=== PATIENT | male | born 1970 | race Caucasian/White ===

== ENCOUNTER 2020-10-08 09:37 | Observation (INO) ==
[2020-10-08] MEDS ORDERED: SODIUM CHLORIDE 0.9% 1,000 ML IV STA (10:08)
[2020-10-08 10:34] LABS: Basophils % 0.4 % (0.0-0.8); Hematocrit 46.8 VOL% (42.0-52.0); Hemoglobin 15.7 GM/DL (14.0-18.0); Immature Granulocytes Absolute 0.05 #; Lymphocytes # 0.7 10*3/uL (1.4-4.0); Lymphocytes % 15.1 % (21.2-54.2); Mean Corpuscular HGB Conc 33.5 GM/DL (32-36); Mean Corpuscular Volume 87.5 FL (87-102); Mean Platelet Volume 9.6 FL (9.6-12.0); Monocytes % 12.8 % (1.7-12.7); Neutrophils % 70.7 % (38.7-73.9); Platelet Count 220 T/CUMM (130-400); Red Blood Count 5.35 MC/CUMM (3.8-5.5); White Blood Count 4.9 T/CUMM (4-12)
[2020-10-08 10:51] LABS: Bilirubin,Urine Negative (Negative); Blood, Urine Negative (Negative); Glucose,Urine (UA) Negative (Negative); Hyaline Casts,Urine 1 /LPF (0-3); Ketones,Urine Negative (Negative); Mucus,Urine Occasional /LPF (Occasional); Nitrite,Urine Negative (Negative); Protein,Urine Negative; RBC,Urine 1 /HPF (0-4); Urine Appearance CLEAR (Clear); Urine Color Yellow (Yellow); Urine Specific Gravity 1.009 (1.001-1.035); Urine Urobilinogen < 2.0 EU/DL (0.2-1.0)
[2020-10-08 10:56] LABS: Barbiturates Screen,Urine Negative (Negative); Benzodiazepines Screen,Urine Negative (Negative); Cannabinoid Screen,Urine Negative (Negative); Opiate Screen,Urine Negative (Negative); Phencyclidine Screen,Urine Negative (Negative)
[2020-10-08 10:57] LABS: Albumin 3.3 G/DL (3.4-5.0); Bilirubin,Total 0.4 MG/DL (0.20-1.00); Calcium 8.5 MG/DL (8.5-10.1); Potassium 3.8 MMOL/L (3.5-5.1); Total Protein 7.2 G/DL (6.4-8.2)
[2020-10-08 11:15] LABS: Ferritin 3973.8 ng/ml (26-388)
[2020-10-08] MEDS ORDERED: ACETAMINOPHEN 325 MG TABLET PO PRN (14:47)
[2020-10-08] MEDS ORDERED: DEXTROSE 50% 25 GM/50 ML VIAL IV PRN (14:47)
[2020-10-08] MEDS ORDERED: hydrALAZINE 20 MG/1 ML VIAL IV PRN (14:47)
[2020-10-08] MEDS ORDERED: ZALEPLON 5 MG CAPSULE PO PRN (14:47)
[2020-10-08] MEDS ORDERED: GLUCAGON 1 MG VIAL IM PRN (14:47)
[2020-10-08] MEDS ORDERED: ONDANSETRON 4 MG/2 ML VIAL IV PRN (14:47)
[2020-10-08] MEDS ORDERED: ENOXAPARIN 40 MG/0.4 ML SYRINGE SUBCUT SCH (15:00)
[2020-10-08] MEDS ORDERED: SODIUM CHLORIDE 0.9% 1,000 ML IV SCH (15:00)
[2020-10-08] MEDS ORDERED: AZITHROMYCIN 250 MG TABLET PO ONE (17:19)
[2020-10-08] MEDS: ALBUTEROL/IPRATROPIUM 3 ML NEB RESP TX SCH (19:35)
[2020-10-08] MEDS: FAMOTIDINE 20 MG TABLET PO SCH (21:41)
[2020-10-08] MEDS: CEFDINIR 300 MG CAPSULE PO SCH (21:41)
[2020-10-08] MEDS: ASCORBIC ACID 500 MG TABLET PO SCH (21:42)
[2020-10-08 23:46] VITALS: BP 124/76
[2020-10-09 05:52] LABS: Basophils % 0.2 % (0.0-0.8); Hematocrit 41.7 VOL% (42.0-52.0); Hemoglobin 14.4 GM/DL (14.0-18.0); Immature Granulocytes % 0.7 %; Immature Granulocytes Absolute 0.03 #; Lymphocytes # 1.3 10*3/uL (1.4-4.0); Lymphocytes % 31.6 % (21.2-54.2); Mean Corpuscular HGB Conc 34.5 GM/DL (32-36); Mean Corpuscular Volume 87.1 FL (87-102); Mean Platelet Volume 9.4 FL (9.6-12.0); Monocytes % 13.3 % (1.7-12.7); Neutrophils % 54.2 % (38.7-73.9); Platelet Count 190 T/CUMM (130-400); Red Blood Count 4.79 MC/CUMM (3.8-5.5); Red Cell Distribution Width 12.9 % (9.3-17.3); White Blood Count 4.2 T/CUMM (4-12)
[2020-10-09] MEDS: ALBUTEROL/IPRATROPIUM 3 ML NEB RESP TX SCH ×3 (06:26→13:43)
[2020-10-09 06:28] LABS: Calcium 8.3 MG/DL (8.5-10.1); Osmolality,Calculated 270.8 MOS/KG (273-304); Potassium 4.2 MMOL/L (3.5-5.1); Risk Ratio 3.44; VLDL Cholesterol 14.4 MG/DL
[2020-10-09] MEDS ORDERED: [UNRECOGNIZED DRUG - OTHER] PO SCH (09:00)
[2020-10-09] MEDS ORDERED: ZINC GLUCONATE 50 MG TABLET PO SCH (09:00)
[2020-10-09] MEDS ORDERED: CETIRIZINE 10 MG TABLET PO SCH (09:00)
[2020-10-09] MEDS ORDERED: CHOLECALCIFEROL 1,000 UNIT TABLET PO SCH (09:00)
[2020-10-09] MEDS ORDERED: AZITHROMYCIN 250 MG TABLET PO SCH (09:00)
[2020-10-09] MEDS ORDERED: PANTOPRAZOLE 40 MG TABLET PO SCH (09:00)
[2020-10-09] MEDS: CEFDINIR 300 MG CAPSULE PO SCH (09:09)
[2020-10-09] MEDS: FAMOTIDINE 20 MG TABLET PO SCH (09:09)
[2020-10-09] MEDS: ASCORBIC ACID 500 MG TABLET PO SCH (09:09)
== END 2020-10-09 14:35 | disposition home or self-care (01) ==
LOC: EDBD → EDUNIT# → N.EDINP 09:37 → N.ED 09:37 → N.CC 23:23
PROVIDERS: ADMIT Internal Medicine; ATTEND Internal Medicine

== ENCOUNTER 2020-10-13 10:22 | Inpatient (IN) ==
[2020-10-13] MEDS ORDERED: ONDANSETRON ODT 4 MG TABLET PO ONE (12:59)
[2020-10-13] MEDS ORDERED: ONDANSETRON ODT 4 MG TABLET PO STA (13:00)
[2020-10-13 13:02] LABS: Basophils % 0.2 % (0.0-0.8); Eosinophils % 0.2 % (0.00-10.9); Hematocrit 39.8 VOL% (42.0-52.0); Hemoglobin 13.4 GM/DL (14.0-18.0); Immature Granulocytes % 0.5 %; Immature Granulocytes Absolute 0.03 #; Lymphocytes # 0.9 10*3/uL (1.4-4.0); Lymphocytes % 14.8 % (21.2-54.2); Mean Corpuscular HGB Conc 33.7 GM/DL (32-36); Mean Corpuscular Volume 87.3 FL (87-102); Mean Platelet Volume 9.1 FL (9.6-12.0); Monocytes % 10.7 % (1.7-12.7); Neutrophils % 73.6 % (38.7-73.9); Platelet Count 304 T/CUMM (130-400); Red Blood Count 4.56 MC/CUMM (3.8-5.5); Red Cell Distribution Width 12.8 % (9.3-17.3); White Blood Count 5.9 T/CUMM (4-12)
[2020-10-13 13:44] LABS: Albumin 2.5 G/DL (3.4-5.0); Bilirubin,Total 0.8 MG/DL (0.20-1.00); Calcium 8.2 MG/DL (8.5-10.1); Ferritin 4203.7 ng/ml (26-388); Osmolality,Calculated 265.2 MOS/KG (273-304); Potassium 3.4 MMOL/L (3.5-5.1); Total Protein 7.1 G/DL (6.4-8.2)
[2020-10-13 13:47] LABS: Lymphocytes 14 % (20-55); Segmented Neutrophils 75 % (50-85); Total Cells Counted 100
[2020-10-13 13:48] LABS: Hypochromasia Slight; Microcytosis Slight; Platelet Estimate Increased
[2020-10-13] MEDS ORDERED: SODIUM CHLORIDE 0.9% 1,000 ML IV STA (14:28)
[2020-10-13] MEDS ORDERED: ACETAMINOPHEN 500 MG TABLET ONE (15:16)
[2020-10-13] MEDS ORDERED: ACETAMINOPHEN 500 MG TABLET PO STA (15:17)
[2020-10-13] MEDS ORDERED: GLUCAGON 1 MG VIAL IM PRN (15:54)
[2020-10-13] MEDS ORDERED: DEXTROSE 50% 25 GM/50 ML VIAL IV PRN (15:54)
[2020-10-13] MEDS: DEXTROSE 5% NACL 0.9% 1,000 ML IV SCH (18:23)
[2020-10-13] MEDS: methylPREDNISolone SOD SUC 40 MG/1 ML VIAL IV SCH ×2 (18:23→21:31)
[2020-10-13] MEDS: cefTRIAXone 1,000 MG in SODIUM CHLORIDE 0.9% 100 ML IV SCH (18:24)
[2020-10-13] MEDS: IBUPROFEN 400 MG TABLET PO SCH ×2 (18:24→21:35)
[2020-10-13] MEDS: ENOXAPARIN 60 MG/0.6 ML SYRINGE SUBCUT SCH (18:24)
[2020-10-13] MEDS: guaiFENesin 200 MG/10 ML UDCUP PO SCH ×2 (18:24→21:35)
[2020-10-13] MEDS: ASCORBIC ACID 500 MG TABLET PO SCH (21:35)
[2020-10-13] MEDS: DOXYCYCLINE HYCLATE 100 MG CAPSULE PO SCH (21:35)
[2020-10-13] MEDS: FAMOTIDINE 20 MG TABLET PO SCH (21:35)
[2020-10-14] MEDS: guaiFENesin 200 MG/10 ML UDCUP PO SCH ×4 (03:31→22:32)
[2020-10-14] MEDS: DEXTROSE 5% NACL 0.9% 1,000 ML IV SCH ×2 (05:10→17:32)
[2020-10-14 05:15] LABS: Hematocrit 32.9 VOL% (42.0-52.0); Hemoglobin 11.9 GM/DL (14.0-18.0); Immature Granulocytes % 0.7 %; Immature Granulocytes Absolute 0.03 #; Lymphocytes # 0.4 10*3/uL (1.4-4.0); Lymphocytes % 9.9 % (21.2-54.2); Mean Corpuscular HGB Conc 36.2 GM/DL (32-36); Mean Corpuscular Volume 90.6 FL (87-102); Mean Platelet Volume 9.7 FL (9.6-12.0); Monocytes % 5.7 % (1.7-12.7); Neutrophils % 83.7 % (38.7-73.9); Platelet Count 254 T/CUMM (130-400); Red Blood Count 3.63 MC/CUMM (3.8-5.5); White Blood Count 4.2 T/CUMM (4-12)
[2020-10-14] MEDS: methylPREDNISolone SOD SUC 40 MG/1 ML VIAL IV SCH ×4 (05:15→22:33)
[2020-10-14] MEDS: IBUPROFEN 400 MG TABLET PO SCH ×4 (05:15→22:33)
[2020-10-14] MEDS: ENOXAPARIN 60 MG/0.6 ML SYRINGE SUBCUT SCH ×2 (05:15→17:32)
[2020-10-14 05:33] LABS: Calcium 8.4 MG/DL (8.5-10.1); Osmolality,Calculated 279.4 MOS/KG (273-304); Potassium 3.7 MMOL/L (3.5-5.1)
[2020-10-14 06:16] LABS: Band Neutrophils 1 % (0-10); Hypochromasia 1+; Lymphocytes 3 % (20-55); Microcytosis 1+; Segmented Neutrophils 92 % (50-85); Total Cells Counted 100
[2020-10-14 06:17] LABS: Platelet Estimate Normal
[2020-10-14] MEDS ORDERED: POTASSIUM CHLORIDE 20 MEQ TABLET PO PRN (07:58)
[2020-10-14] MEDS: ASCORBIC ACID 500 MG TABLET PO SCH ×2 (09:13→20:49)
[2020-10-14] MEDS: ZINC GLUCONATE 50 MG TABLET PO SCH (09:13)
[2020-10-14] MEDS: CETIRIZINE 10 MG TABLET PO SCH (09:13)
[2020-10-14] MEDS: CHOLECALCIFEROL 1,000 UNIT TABLET PO SCH (09:13)
[2020-10-14] MEDS: FAMOTIDINE 20 MG TABLET PO SCH ×2 (09:13→20:49)
[2020-10-14] MEDS: DOXYCYCLINE HYCLATE 100 MG CAPSULE PO SCH ×2 (09:13→20:49)
[2020-10-14 14:36] LABS: Bacteria,Urine Occasional /HPF (Few); Bilirubin,Urine Negative (Negative); Blood, Urine Negative (Negative); Glucose,Urine (UA) 50 mg/dL (Negative); Ketones,Urine Negative (Negative); Mucus,Urine Many /LPF (Occasional); Nitrite,Urine Negative (Negative); Protein,Urine 30 MG/DL; RBC,Urine 1 /HPF (0-4); Squamous Epithelial Cell,Urine Occasional /HPF (0-10); Urine Appearance CLEAR (Clear); Urine Color Yellow (Yellow); Urine Specific Gravity 1.021 (1.001-1.035)
[2020-10-14] MEDS: cefTRIAXone 1,000 MG in SODIUM CHLORIDE 0.9% 100 ML IV SCH (15:17)
[2020-10-14] MEDS ORDERED: ALUMINUM/MAGNES/SIMETH MAX STR 30 ML UDCUP PO ONE (22:01)
[2020-10-15] MEDS: guaiFENesin 200 MG/10 ML UDCUP PO SCH ×4 (04:17→21:18)
[2020-10-15] MEDS: IBUPROFEN 400 MG TABLET PO SCH ×4 (04:18→21:18)
[2020-10-15] MEDS: methylPREDNISolone SOD SUC 40 MG/1 ML VIAL IV SCH ×3 (04:18→22:35)
[2020-10-15 06:01] LABS: Basophils % 0.1 % (0.0-0.8); Hematocrit 32.3 VOL% (42.0-52.0); Hemoglobin 11.5 GM/DL (14.0-18.0); Immature Granulocytes % 1.2 %; Immature Granulocytes Absolute 0.15 #; Lymphocytes # 0.8 10*3/uL (1.4-4.0); Lymphocytes % 6.6 % (21.2-54.2); Mean Corpuscular HGB Conc 35.6 GM/DL (32-36); Mean Platelet Volume 10.2 FL (9.6-12.0); Monocytes % 4.7 % (1.7-12.7); Neutrophils % 87.4 % (38.7-73.9); Platelet Count 310 T/CUMM (130-400); Red Blood Count 3.59 MC/CUMM (3.8-5.5); Red Cell Distribution Width 13.2 % (9.3-17.3); White Blood Count 12.1 T/CUMM (4-12)
[2020-10-15] MEDS: ENOXAPARIN 60 MG/0.6 ML SYRINGE SUBCUT SCH ×2 (06:05→18:18)
[2020-10-15 06:31] LABS: Calcium 8.5 MG/DL (8.5-10.1); Osmolality,Calculated 280.4 MOS/KG (273-304); Potassium 3.5 MMOL/L (3.5-5.1)
[2020-10-15 06:36] LABS: Lymphocytes 2 % (20-55); Platelet Estimate Normal; Segmented Neutrophils 96 % (50-85); Total Cells Counted 100
[2020-10-15] MEDS: CETIRIZINE 10 MG TABLET PO SCH (09:05)
[2020-10-15] MEDS: FAMOTIDINE 20 MG TABLET PO SCH ×2 (09:05→20:34)
[2020-10-15] MEDS: CHOLECALCIFEROL 1,000 UNIT TABLET PO SCH (09:05)
[2020-10-15] MEDS: ASCORBIC ACID 500 MG TABLET PO SCH ×2 (09:05→20:34)
[2020-10-15] MEDS: DOXYCYCLINE HYCLATE 100 MG CAPSULE PO SCH ×2 (09:05→20:33)
[2020-10-15] MEDS: ZINC GLUCONATE 50 MG TABLET PO SCH (09:05)
[2020-10-15] MEDS: DEXTROSE 5% NACL 0.9% 1,000 ML IV SCH ×2 (10:44→20:43)
[2020-10-15] MEDS: ALUMINUM/MAGNES/SIMETH MAX STR 30 ML UDCUP PO PRN ×2 (13:15→20:36)
[2020-10-15] MEDS: cefTRIAXone 1,000 MG in SODIUM CHLORIDE 0.9% 100 ML IV SCH (16:20)
[2020-10-16] MEDS: guaiFENesin 200 MG/10 ML UDCUP PO SCH ×2 (04:02→10:54)
[2020-10-16] MEDS: IBUPROFEN 400 MG TABLET PO SCH ×2 (04:02→10:54)
[2020-10-16] MEDS: ENOXAPARIN 60 MG/0.6 ML SYRINGE SUBCUT SCH (05:20)
[2020-10-16 06:13] LABS: Basophils % 0.1 % (0.0-0.8); Hemoglobin 11.7 GM/DL (14.0-18.0); Immature Granulocytes % 0.9 %; Immature Granulocytes Absolute 0.09 #; Lymphocytes # 0.7 10*3/uL (1.4-4.0); Lymphocytes % 6.8 % (21.2-54.2); Mean Corpuscular HGB Conc 35.5 GM/DL (32-36); Mean Corpuscular Volume 90.2 FL (87-102); Mean Platelet Volume 10.2 FL (9.6-12.0); Monocytes % 8.1 % (1.7-12.7); Neutrophils % 84.1 % (38.7-73.9); Platelet Count 359 T/CUMM (130-400); Red Blood Count 3.66 MC/CUMM (3.8-5.5); Red Cell Distribution Width 12.8 % (9.3-17.3)
[2020-10-16 06:29] LABS: Calcium 8.1 MG/DL (8.5-10.1); Osmolality,Calculated 282.3 MOS/KG (273-304); Potassium 3.9 MMOL/L (3.5-5.1)
[2020-10-16] MEDS: DEXTROSE 5% NACL 0.9% 1,000 ML IV SCH (08:14)
[2020-10-16] MEDS: ASCORBIC ACID 500 MG TABLET PO SCH (10:53)
[2020-10-16] MEDS: CETIRIZINE 10 MG TABLET PO SCH (10:53)
[2020-10-16] MEDS: CHOLECALCIFEROL 1,000 UNIT TABLET PO SCH (10:53)
[2020-10-16] MEDS: ZINC GLUCONATE 50 MG TABLET PO SCH (10:53)
[2020-10-16] MEDS: FAMOTIDINE 20 MG TABLET PO SCH (10:53)
[2020-10-16] MEDS: DOXYCYCLINE HYCLATE 100 MG CAPSULE PO SCH (10:53)
[2020-10-16] MEDS: methylPREDNISolone SOD SUC 40 MG/1 ML VIAL IV SCH (10:57)
[2020-10-16 11:56] VITALS: BP 116/58
== END 2020-10-16 15:20 | disposition home health service (06) | DRG 177 ==
LOC: N.ED 10:22 → N.EDINP 10:22 → SUATTDRO 15:54 → N.2E 17:13
PROVIDERS: ADMIT Internal Medicine; ATTEND Internal Medicine